=== PATIENT | male | born 1985 | race Caucasian/White ===

== ENCOUNTER 2025-06-02 20:02 | Emergency (ER) | payer OTHER, SELFPAY ==
[2025-06-02 20:15] VITALS: BP 112/77; PULSE 72; RESP 16; TEMP 37.1; O2SAT 98
--- NOTE | 2025-06-02 20:15 | DI.RAD_ITS ---
Exam(s) XR CHEST 2V PA LATERAL EXAM: XR CHEST 2V PA LATERAL CLINICAL HISTORY: fever, chills TECHNIQUE: 2D digital imaging was performed. Two views. COMPARISON: No exams were available for comparison FINDINGS: HEART: Normal size. Aorta: Not dilated. PULMONARY VASCULATURE: Normal. MEDIASTINUM: Unremarkable. LUNGS: Clear. PLEURAL SPACE: No pleural effusion or pneumothorax. BONE:Unremarkable for age. SOFT TISSUES: Unremarkable. IMPRESSION: No acute abnormality. The preliminary [facility] report was reviewed. DATA REPOSITORY: RADIATION DOSE DELIVERED:
[2025-06-02 20:19] VITALS: BP 112/77; PULSE 72; RESP 16; TEMP 37.1; O2SAT 98
[2025-06-02 20:57] LABS: Abs Immature Grans 0.02 10^3/uL (0.0-0.06); HCT 40.2 % (40.0-50.0); HGB 14.0 g/dL (13.5-17.5); Immature Grans % 0.2 %; MCH 31.2 pg (27.0-33.0); MCHC 34.8 % (32.0-36.0); MCV 90 fL (80-95); MPV 9.0 fL (8.0-11.0); Platelet Count 270 10^3/uL (130-400); RBC 4.49 10^6/uL (4.36-5.78); RDW 12.2 % (11.8-14.1); RDW-SD 39.8 fL; WBC 12.90 10^3/uL (4.4-10.8)
[2025-06-02 21:11] LABS: Mono Screening Negative (Negative)
--- NOTE | 2025-06-02 21:11 | ED.GENADUL_ITS ---
Discharge Plan Disposition Patient Disposition: Home Condition: Stable Discharge Details Clinical Impression: Fatigue, Chills Primary Care Provider: Meri,Local ED Provider: Rhonda Lewis Home Meds and New Rx's Prescriptions: New doxycycline monohydrate 100 mg capsule 100 mg PO BID Qty: 20 0RF Discharge Instructions Instructions: Fatigue ED Additional Instructions: Tick panel will likely return in 3 to 4 days, you may call for the results Take ibuprofen Tylenol as needed for pain Make sure you are consuming at least eight 8 ounce glasses of water daily Every new prescription for doxycycline if you do develop a temp over 100.4 or start feeling worse, please start the antibiotic Recommendation for 48-hour recheck if you are feeling no improvement or should any new concerns arise please present for reassessment Discharge Data Discharge Date/Time-TO BE ENTERED AT DEPARTURE: 06/02/25 21:54 HPI General Date/Time Provider Initiated Documentation: 06/02/25 20:04 . HPI Narrative: 40-year-old male with chills and malaise for 3 weeks. Symptoms fluctuating for the past week. Worked on a farm over the summer. Reports chills, fatigue, and sore throat. No fever, urinary symptoms, cough, or wheezing. Noticed multiple ticks but no engorged tick or tick attached for >72 hours. No sick contacts. Generally healthy, no medications. Related Data Home Medications ?Medication ?Instructions ?Recorded ?Confirmed doxycycline monohydrate 100 mg 100 mg PO BID #20 caps 06/02/25 capsule Previous Rx's ?Medication ?Instructions ?Recorded doxycycline monohydrate 100 mg 100 mg PO BID #20 caps 06/02/25 capsule Allergies Allergy/AdvReac Type Severity Reaction Status Date / Time No Known Allergies Allergy Verified 06/02/25 20:18 General Stated Complaint: [facility] ESTELA: 3 Exam Narrative Exam Narrative: General Appearance: Alert and oriented. Vital signs: Within normal limits. HEENT: Oropharynx patent, uvula midline. Respiratory: Lungs clear to auscultation. Cardiovascular: Regular cardiac rate and rhythm. Gastrointestinal: No abdominal tenderness. Skin: No rashes or lesions. Neurological: Normal. Course Vital Signs Vital signs: Vital Signs Temperature 37.1 C 06/02/25 20:15 Pulse 72 06/02/25 20:15 Respiratory Rate 16 06/02/25 20:15 Blood Pressure 112/77 06/02/25 20:15 Pulse Oximetry 98 06/02/25 20:15 Temperature 37.1 C 06/02/25 20:19 Temperature Source Oral 06/02/25 20:19 Pulse 72 06/02/25 20:19 Respiratory Rate 16 06/02/25 20:19 Blood Pressure 112/77 06/02/25 20:19 Blood Pressure Position Sitting 06/02/25 20:19 Pulse Oximetry 98 06/02/25 20:19 Oxygen Delivery Method Room Air 06/02/25 20:19 Oxygen Flow Rate 0 06/02/25 20:19 Pain Level 3 06/02/25 20:19 Lab/Test Results Lab/Test Results: Laboratory Tests Range/Units 06/02/25 20:47 WBC (4.4-10.8) 10^3/uL 12.90 H RBC (4.36-5.78) 10^6/uL 4.49 Hgb (13.5-17.5) g/dL 14.0 Hct (40.0-50.0) % 40.2 MCV (80-95) fL 90 MCH (27.0-33.0) pg 31.2 MCHC (32.0-36.0) % 34.8 RDW (11.8-14.1) % 12.2 Plt Count (130-400) 10^3/uL 270 MPV (8.0-11.0) fL 9.0 Immature Gran % % 0.2 Neutrophils % % 79.0 Lymphocytes % % 14.4 Monocytes % % 4.4 Eosinophils % % 1.8 Basophils % % 0.2 Nucleated RBC % (0.0-0.3) % 0.0 Absolute Neutrophils (1.2-6.7) 10^3/uL 10.19 H Absolute Lymphocytes (1.2-3.4) 10^3/uL 1.86 Absolute Monocytes (0.1-0.8) 10^3/uL 0.57 Absolute Eosinophils (0.0-0.7) 10^3/uL 0.23 Absolute Basophils (0.0-0.2) 10^3/uL 0.03 Medical Decision Making Initial Assessment: 40-year-old male with chills, fatigue, and sore throat. Symptoms fluctuating for the past week. Multiple ticks, no engorged tick or tick attached for >72 hours. No fever, urinary symptoms, cough, or wheeze. Differential Diagnosis: - Tick-borne illness: Tick panel ordered. - Viral infection: Blood work ordered. - Bacterial infection: Leukocytosis at 12,000. Blood work ordered. ED Course: - Chest x-ray ordered - Blood work ordered - Tick panel ordered Final Assessment: Chills, fatigue, sore throat, multiple ticks. Chest x-ray, blood work, tick panel ordered. Leukocytosis at 12,000. Clinical Impression: - General malaise - Leukocytosis Disposition: - Discharge: Home. Return if symptoms worsen or new symptoms develop. - Follow-Up: Primary care physician. PFSH All Active Problems (Updated 06/02/25 @ 21:46 by MARY Watt) Chills (Acute) Fatigue (Acute) Social History Smoking/Tobacco Use Status: Never Smoking risk assessment performed?: Yes Alcohol Intake: current Alcohol Intake frequency: a few times a week Drug use: Occasionally Substance use type: marijuana Do you feel safe at home: Yes Do you feel safe in your relationship?: Yes
[2025-06-02 21:21] LABS: ALT 25 U/L (16-63); AST 16 U/L (15-37); Albumin 3.9 g/dL (3.4-5.0); Alkaline Phosphatase 104 U/L (46-116); Anion Gap 5.3 mmol/L (3-11); BUN 15 mg/dL (7-18); Bilirubin, Total 0.7 mg/dL (0.2-1.0); CO2 30.7 mmol/L (21.0-32.0); Calcium 9.2 mg/dL (8.5-10.1); Chloride 105 mmol/L (98-107); Estimated GFR 120.95 (mL/min/1.73m2); Glucose 108 mg/dL (74-106); Potassium 3.4 mmol/L (3.5-5.1); Sodium 141 mmol/L (136-145); TSH (W/Ref FT4) 1.26 uIU/mL (0.36-3.74); Total Protein 7.0 g/dL (6.4-8.2)
[2025-06-02 21:48] VITALS: BP 100/64; PULSE 81; RESP 16; TEMP 37.1; O2SAT 97
[2025-06-02 21:53] VITALS: RESP 18
[2025-06-02 21:54] VITALS: RESP 18
--- NOTE | 2025-06-02 21:55 | DI.[facility]_ITS ---
PROCEDURE INFORMATION: Exam: XR Chest Exam date and time: 06/02/2025 8:39 PM Age: 40 years old Clinical indication: Fever and other: Chills; Additional info: Fever, chills TECHNIQUE: Imaging protocol: Radiologic exam of the chest. Views: 2 views. COMPARISON: No relevant prior studies available. FINDINGS: Lungs: The lungs are clear. No consolidative radiopacities. Pleural spaces: No pleural effusion. No pneumothorax. Heart/Mediastinum: The heart is normal size. Bones/joints: Unremarkable. IMPRESSION: No acute cardiopulmonary findings. Dictated and Authenticated by: Elizabeth Tello MD. Orderin Joshua Ellis MD
[2025-06-04 10:50] LABS: Lyme Ab w Rflx to Lyme Confirm Negative (Negative)
[2025-06-06 21:50] LABS: B. miyamotoi PCR Negative (Negative); Babesia divergens/MO-1 Negative (Negative); Ehrlichia muris eauclairensis Negative (Negative)
== END 2025-06-02 21:54 | disposition home or self-care (01) ==
PROVIDERS: Emergency Provider Physician Assistant
DX: R53.83 Other fatigue (principal); R68.83 Chills (without fever); J02.9 Acute pharyngitis, unspecified
CPT/HCPCS: 80053; 87798; 99284; 71046; 84443; 85025; 86308; 86618; 99283